=== PATIENT | female | born 1940 | race Caucasian/White ===

== ENCOUNTER 2017-09-15 08:42 | Day surgery (SDC) | payer MEDICARE, OTHER, SELFPAY ==
--- NOTE | 2017-09-09 11:23 | EKG12_ITS ---
Test Reason : PREOP Blood Pressure : / mmHG Vent. Rate : 072 BPM Atrial Rate : 072 BPM P-R Int : 162 ms QRS Dur : 098 ms QT Int : 468 ms P-R-T Axes : 083 057 084 degrees QTc Int : 512 ms Normal sinus rhythm with sinus arrhythmia Nonspecific T wave abnormality Prolonged QT Abnormal ECG Confirmed by ADAM SHAH, MELODY ([id number]), food editor DALTON WARD ([id number] on 09/10/2017 4:51:19 PM Referred By: Zaheer Wilkerson Confirmed By:MELODY MEDINA MD
[2017-09-15 09:06] VITALS: BP 156/66; PULSE 55; RESP 16; TEMP 36.6; O2SAT 98; BMI 25.3
[2017-09-15 09:09] LABS: Hematocrit 40.2 % (37-47); Hemoglobin 13.3 g/dl (12.0-15.0); Mean Corp Hgb Conc 33.1 g/gl (32-36); Mean Corpuscular Hgb 30.3 pg (27.0-32.0); Mean Corpuscular Volume 91.6 fL (81-99); Mean Platelet Vol. 9.7 fl (6.2-12.0); Platelet Count 207 K/mm3 (150-450); RBC Distribution Width CV 13.9 % (11.6-14.6); RBC Distribution Width SD 45.9 fl (35.1-43.9); Red Blood Count 4.39 M/mm3 (4.2-5.4); White Blood Count 6.1 K/mm3 (4.4-11.0)
[2017-09-15 09:10] LABS: Scan Indicated on CBC? Y/N NO
--- NOTE | 2017-09-15 10:26 | PCM.DC ---
You will use the following diet at home:: Regular Discharge Activity: Return to Normal Activity, - - NO nose blowing Additional Activity Instructions:: Start saline nasal spray 3 sprays right nostril 3x/day on 09/16/17 Allergies/Adverse Reactions: Allergies No Known Allergies Allergy (Verified 09/15/17 09:06) Medications to take at Discharge Aspirin [Adult Aspirin Regimen] 81 mg PO DAILY 09/15/17 Calcium Carbonate [Calcium] 600 mg PO DAILY 09/15/17 Cinnamon Bark [Cinnamon] 1,000 mg PO DAILY 09/15/17 Furosemide [Lasix] 40 mg PO DAILY 09/15/17 [place]-3 Fatty Acids/Fish Oil [Fish Oil 1,000 mg Capsule] 1 each PO DAILY 09/15/17 Potassium Chloride [Klor-Con M20] 20 meq PO DAILY 09/15/17 RX: Multivitamin [Daily Multiple Vitamin] 1 tab PO DAILY 09/15/17 Sotalol HCl [Betapace AF (Beta Cuca)] 80 mg PO BID 09/15/17 Primary Care Physician: Luis Marquez DO [Primary Care Provider] -
[2017-09-15] MEDS: Oxymetazoline 0.05% 1 SPRAY SPRAY.BTL 15 SPRAY (10:30)
[2017-09-15] MEDS: Lidocaine 4% 50 ML Bottle (10:30)
--- NOTE | 2017-09-15 10:47 | PCM.OPRPT ---
Report of Operation Date of Procedure: 09/15/17 Pre-Operative Diagnosis: epistaxis Post-Operative Diagnosis: same Surgery/Procedure Performed:: endoscopic cautery nasal hemorrhage Description of Surgical Findings:: vascular lesion left inferior turbinate Type of Anesthesia:: Local MAC Anesthesiologist: Jesu Ross Specimen's removed: none Estimated Blood Loss (mL): minimal Description of Procedure: The patient was taken to the OR on 09/15/17. She was placed in the supine position on the oR table. She was given local mac anesthesia. The patient was draped steriley. Topical 4% lidocaine was placed on a pledget and placed in the left nose. This was then removed and an afrin codman was placed in the posterior nasal cavity to absorb blood. The lesion was identified using a 0 degree endoscope. A photo was taken. I then injected 1%lidocaine with epinephrine around the lesion. Next, I cauterized the area with suction cautery. I then applied dori powder to the cauterized area. The patient was then awoken and brought to the recovery room in stable condition, blood loss minimal, replacement none. Sponge needle and instrument count were correct at the end of the procedure.
[2017-09-15 10:53] VITALS: BP 117/59; BP 156/66; PULSE 63; RESP 16; TEMP 36.3; O2SAT 93
[2017-09-15 11:00] VITALS: BP 114/51; BP 156/66; PULSE 60; RESP 18; O2SAT 93
[2017-09-15 11:05] VITALS: BP 126/58; BP 156/66; PULSE 58; RESP 16; O2SAT 96
[2017-09-15 11:06] VITALS: BP 131/56; BP 156/66; PULSE 58; RESP 18; TEMP 36.3; O2SAT 94
[2017-09-15 11:34] VITALS: BP 156/66
== END 2017-09-15 11:50 | disposition home or self-care (01) ==
LOC: SDC 08:43 → AC 08:44
PROVIDERS: Anesthesiology; Family Provider Preventive Medicine Occupational Medicine; PCP Preventive Medicine Occupational Medicine; Visit Provider Otolaryngology
PROC: (CPT 31238; principal; 2017-09-15 10:45)
DX: J34.89 Other specified disorders of nose and nasal sinuses (principal); R04.0 Epistaxis; R01.1 Cardiac murmur, unspecified; I48.91 Unspecified atrial fibrillation; H40.9 Unspecified glaucoma; I11.0 Hypertensive heart disease with heart failure; I50.9 Heart failure, unspecified; Z85.3 Personal history of malignant neoplasm of breast; Z78.0 Asymptomatic menopausal state; Z79.82 Long term (current) use of aspirin; Z79.899 Other long term (current) drug therapy; Z87.891 Personal history of nicotine dependence
CPT/HCPCS: 31238; 36415; 85027; 93005; J7120; J2405